=== PATIENT | female | born 1980 | race Two or more races ===

== ENCOUNTER 2024-05-10 08:31 | Inpatient (IN) | payer OTHER ==
[~2024-05-10] VITALS: Ht 152.4 cm; Wt 45.4 kg
[~2024-05-10 08:31] MED LIST: PROVENTIL S1 ML/5 MG
--- NOTE | 2024-05-10 08:42 | NUR ---
PACIENTE ALERTA Y ORIENTADA X 3. REFIERE DESDE HOMERO DIARREAS Y DOLOR ABDOMINAL. HOY DIARREAS X 10.
[2024-05-10] MEDS ORDERED: 0.9 % SODIUM CHLORIDE 1,000 ML IV STA (08:56)
[2024-05-10] MEDS ORDERED: LACTOBACILLUS ACIDOPHILUS 1 CAP CAP PO ONE (09:00)
[2024-05-10] MEDS ORDERED: MEPERIDINE HCL 25 MG/ML AMPUL IV ONE (09:00)
[2024-05-10 09:12] LABS: HEMATOCRIT 43.3 % (36.0-45.00); HEMOGLOBIN 14.6 g/dL (12.0-15.00); MEAN CELL VOLUME 89.3 fL (80.00-100.00); MEAN CORPUSCULAR HEMOGLOBIN 30.1 pg (27.00-32.0); MEAN CORPUSCULAR HGB CONC 33.7 g/dl (32.0-36.0); PLATELET COUNT 236 K/uL (150-450); RED BLOOD COUNT 4.85 M/uL (4.00-6.00)
[2024-05-10] MEDS ORDERED: FAMOTIDINE/PF 20 MG/2 ML VIAL IV ONE (09:30)
[2024-05-10] MEDS ORDERED: ONDANSETRON HCL 2 MG/ML VIAL IM ONE (09:30)
[2024-05-10 09:33] LABS: CALCIUM 8.5 mg/dL (8.5-10.1); CREATININE SERUM 0.58 mg/dL (0.55-1.02); GFR 112.93
[2024-05-10 09:36] LABS: POTASSIUM 2.78 mEq/L (3.5-5.1)
[2024-05-10] MEDS ORDERED: POTASSIUM CHLORIDE IN 0.9%NACL 1,000 ML IV NR (11:45)
[2024-05-10] MEDS ORDERED: MEPERIDINE HCL/PF 25 MG/ML VIAL IV ONE (12:45)
--- NOTE | 2024-05-10 15:11 | NUR ---
PTE ALERTA Y ORIENTADA X 3 ESFERAS EN JIMMIE CON BARANDAS ELEVADAS CON RE-EMPLAZO DE KCL,QUEDA BAJO OBSERVACION.
[2024-05-10] MEDS ORDERED: CEFTRIAXONE SODIUM 2,000 MG in 0.9 % SODIUM CHLORIDE 100 ML IV SCH (17:08)
[2024-05-10] MEDS ORDERED: LACTOBACILLUS ACIDOPHILUS 1 CAP CAP PO SCH (17:08)
[2024-05-10] MEDS ORDERED: 0.9 % SODIUM CHLORIDE 1,000 ML IV SCH (17:15)
[2024-05-10] MEDS ORDERED: ACETAMINOPHEN 500 MG GEL..CAP PO PRN (17:15)
[2024-05-10] MEDS ORDERED: ONDANSETRON HCL 4 MG in 0.9 % SODIUM CHLORIDE 50 ML IV PRN (17:15)
[2024-05-10 19:07] LABS: INR 0.97; PARTIAL THROMBOPLASTIN TIME 26.8 SECONDS (22.0-34.0); PROTHROMBIN TIME 10.2 SECONDS (9.0-11.5)
[2024-05-10 19:10] LABS: MAGNESIUM 1.7 mg/dL (1.8-2.4); PHOSPHOROUS 2.6 mg/dL (2.5-4.9)
[2024-05-10 19:16] LABS: C-REACTIVE PROTEIN 5.92 MG/DL (0.00-0.29)
[2024-05-10] MEDS ORDERED: POTASSIUM CHLORIDE IN WATER 100 ML IV SCH (21:00)
[2024-05-11] MEDS ORDERED: METRONIDAZOLE/SODIUM CHLORIDE 100 ML IV SCH (01:00)
[2024-05-11] MEDS ORDERED: FAMOTIDINE/PF 20 MG in 0.9 % SODIUM CHLORIDE 8 ML IV PUSH SCH (09:00)
[2024-05-11 11:26] LABS: PH,URINE 6.5 (5.0-8.0); URINE APPEARANCE Cloudy; URINE BILIRRUBIN Negative (NEGATIVE); URINE BLOOD Moderate; URINE COLOR Yellow; URINE GLUCOSE Negative (NEGATIVE); URINE LEUKOCYTE Large; URINE NITRATE Negative; URINE PROTEIN Trace (NEGATIVE); URINE UROBILINOGEN 0.2 E.U./dl
[2024-05-11 11:30] LABS: URINE BACTERIA 1064.6 uL (0.0-1933); URINE EPITHELIAL CELLS 29.6 uL (0.0-38.8); URINE RBC 88.2 uL (0.0-20.8)
[2024-05-11] MEDS ORDERED: POTASSIUM CHLORIDE IN WATER 100 ML IV SCH (17:00)
[2024-05-11] MEDS ORDERED: KETOROLAC TROMETHAMINE 30 MG VIAL IV PRN (23:15)
[2024-05-12] MEDS ORDERED: SUGAMMADEX SODIUM 200 MG/2 ML VIAL IV ONE (00:15)
[2024-05-12 04:33] LABS: HEMATOCRIT 39.6 % (36.0-45.00); HEMOGLOBIN 13.4 g/dL (12.0-15.00); MEAN CELL VOLUME 89.6 fL (80.00-100.00); MEAN CORPUSCULAR HEMOGLOBIN 30.2 pg (27.00-32.0); MEAN CORPUSCULAR HGB CONC 33.7 g/dl (32.0-36.0); PLATELET COUNT 200 K/uL (150-450); RED BLOOD COUNT 4.42 M/uL (4.00-6.00); RED CELL DISTRIBUTION WIDTH 13.9 % (11.5-14.5)
[2024-05-12 05:15] LABS: ALBUMIN 2.7 gm/dL (3.4-5.0); BILIRUBIN TOTAL 0.24 mg/dL (0.3-1.2); CALCIUM 7.8 mg/dL (8.5-10.1); CREATININE SERUM 0.53 mg/dL (0.55-1.02); GFR 125.32; GLOBULINA 3.7 G/DL (2.4-3.5); TOTAL PROTEIN 6.4 gm/dL (6.4-8.2)
[2024-05-12 06:34] LABS: POTASSIUM 2.88 mEq/L (3.5-5.1)
[2024-05-12] MEDS ORDERED: SUCRALFATE 1 G TABLET PO SCH (09:00)
[2024-05-12] MEDS ORDERED: SIMETHICONE 125 MG CAPSULE PO SCH (09:00)
[2024-05-12] MEDS ORDERED: POTASSIUM CHLORIDE IN WATER 40 MEQ/100 ML PIGGYBAG IV STA (12:19)
[2024-05-12] MEDS ORDERED: POTASSIUM CHLORIDE 10 MEQ CAPSULE PO NR (14:45)
[2024-05-13 05:49] LABS: CALCIUM 7.2 mg/dL (8.5-10.1); CREATININE SERUM 0.48 mg/dL (0.55-1.02); GFR 140.5
[2024-05-13 06:50] LABS: POTASSIUM 2.79 mEq/L (3.5-5.1)
[2024-05-13] MEDS ORDERED: POTASSIUM CHLORIDE 20MEQ/100ML H2O PB IV STA (10:28)
[2024-05-13] MEDS ORDERED: POTASSIUM CHLORIDE 10 MEQ CAPSULE PO NR (10:30)
[2024-05-14 13:13] LABS: CREATININE SERUM 0.45 mg/dL (0.55-1.02); GFR 151.36
[2024-05-14 13:37] LABS: POTASSIUM 2.69 mEq/L (3.5-5.1)
== END 2024-05-14 17:19 | disposition home or self-care (01) | DRG 399 ==
LOC: ER 08:32 → MEDI 18:03 → MEDJ 05-14 14:34
PROVIDERS: Emergency Medicine; General Practice; Surgery; ADMIT Internal Medicine; ATTEND Internal Medicine
PROC: 0DTJ4ZZ Resection of Appendix, Percutaneous Endoscopic Approach (ICD-10-PCS; principal; 2024-05-11 22:00)
DX: K35.30 Acute appendicitis with localized peritonitis, without perforation or gangrene (principal); E86.0 Dehydration; E87.6 Hypokalemia

== ENCOUNTER 2024-11-02 09:45 | Emergency (ER) | payer OTHER ==
[~2024-11-02] VITALS: Ht 157.5 cm; Wt 45.4 kg
== END 2024-11-02 12:53 | disposition home or self-care (01) ==
LOC: ER 09:48
DX: R42 Dizziness and giddiness (principal)

== ENCOUNTER 2025-05-31 09:37 | Emergency (ER) | payer OTHER ==
[~2025-05-31] VITALS: Ht 152.4 cm; Wt 45.4 kg
[2025-05-31 09:55] VITALS: BP 118/84; O2SAT 100
[2025-05-31 10:36] LABS: BASO % 0.8 % (0.1-1.2); EOS # 0.31 (0.04-0.54); EOS % 4.3 % (0.7-7.0); LYMPH # 2.00 (1.18-3.74); LYMPH % 27.8 % (19.3-53.1); MEAN PLATELET VOLUME 10.20 fl (9.4-12.4); MONO # 0.53 (0.24-0.82); MONO % 7.4 % (4.7-12.5); NEUT # 4.27 (1.56-6.13); NEUT % 59.4 % (34.0-71.1); RED CELL DISTRIBUTION WIDTH 12.6 % (11.6-14.4)
[2025-05-31 11:27] LABS: COVID-19 AG NEGATIVE (NEGATIVE)
[2025-05-31] MEDS ORDERED: GILTUSS COUGH-118 M1 PO (12:45)
[2025-05-31] MEDS ORDERED: ZYRTEC10 M3 PO (12:45)
== END 2025-05-31 13:30 | disposition home or self-care (01) ==
LOC: ER 09:37
PROVIDERS: Preventive Medicine Public Health & General Preventive Medicine
DX: J00 Acute nasopharyngitis [common cold] (principal); J45.909 Unspecified asthma, uncomplicated; Z20.822 Contact with and (suspected) exposure to COVID-19